=== PATIENT | female | born 1980 | race Caucasian/White ===

== ENCOUNTER 2023-06-01 06:51 | Emergency (ER) | payer OTHER ==
[~2023-06-01] VITALS: Ht 165.1 cm; Wt 94.8 kg
[~2023-06-01 06:51] MED LIST: BIRTH CONTROL PILLS
[2023-06-01] MEDS ORDERED: METOPROLOL SUCCINATE (07:07)
[2023-06-01] MEDS ORDERED: AMLODIPINE BESY10 MG PO (07:07)
[2023-06-01] MEDS ORDERED: OMEP20ER PO (07:07)
[2023-06-01 07:45] LABS: BASOPHILS ABSOLUTE AUTO 0.04 K/mm3 (0.00-0.23); BASOPHILS PERCENT AUTO 1 % (0-2); EOSINOPHILS ABSOLUTE AUTO 0.05 K/mm3 (0.00-0.68); EOSINOPHILS PERCENT AUTO 1 % (0-6); Hematocrit 36.9 % (33.0-51.0); Hemoglobin 11.1 g/dL (11.5-16.0); IMMATURE GRAN ABSOLUTE AUTO 0.01 K/mm3 (0.00-0.10); IMMATURE GRAN PERCENT AUTO 0 % (0-1); LYMPHOCYTES ABSOLUTE AUTO 1.27 K/mm3 (0.84-5.20); LYMPHOCYTES PERCENT AUTO 19 % (21-46); MONOCYTES ABSOLUTE AUTO 0.26 K/mm3 (0.16-1.47); MONOCYTES PERCENT AUTO 4 % (4-13); Mean Corpuscular HGB 22.2 pg (26.0-34.0); Mean Corpuscular HGB Conc 30.1 g/dL (31.5-36.5); Mean Corpuscular Volume 74 fL (80-100); Mean Platelet Volume 12.4 fL (9.1-12.4); NEUTROPHILS ABSOLUTE AUTO 5.14 K/mm3 (1.96-9.15); NEUTROPHILS PERCENT AUTO 76 % (41-73); Platelet Count 277 K/mm3 (150-400); RDW Coefficient Variation 16.1 % (11.7-14.2); RDW Standard Deviation 42.5 fL (35.1-46.3); White Blood Cell Count 6.77 K/mm3 (4.00-11.30)
[2023-06-01 08:04] LABS: Albumin, Blood 3.8 g/dL (3.4-5.0); Albumin/Globulin Ratio 0.9 (0.8-1.8); Bilirubin, Total 0.3 mg/dL (0.1-1.0); Bun/Creatinine Ratio 19.9 (12.0-20.0); Creatinine, Blood 0.65 mg/dL (0.40-1.00); Globulin, Blood 4.2 g/dL (2.2-4.0); Potassium, Blood 4.3 mmol/L (3.5-5.5)
[2023-06-01 10:30] VITALS: BP 169/98
== END 2023-06-01 10:42 | disposition home or self-care (01) ==
LOC: ER 06:51
PROVIDERS: Emergency Medicine
DX: I10 Essential (primary) hypertension (principal); R11.0 Nausea; J45.909 Unspecified asthma, uncomplicated; Z79.899 Other long term (current) drug therapy
CPT/HCPCS: 70450; 80053; 85025; 93005; 93010; 96374; 96375; 99284-25; J1885; J2405; J2765